=== PATIENT | male | born 1985 | race Caucasian/White ===

== ENCOUNTER 2022-03-12 05:25 | Inpatient (IN) | payer OTHER ==
[~2022-03-12] VITALS: Ht 180.3 cm; Wt 86.4 kg
[2022-03-12 07:13] LABS: BASOPHILS ABSOLUTE AUTO 0.04 K/mm3 (0.00-0.23); BASOPHILS PERCENT AUTO 0 % (0-2); EOSINOPHILS ABSOLUTE AUTO 0.01 K/mm3 (0.00-0.68); EOSINOPHILS PERCENT AUTO 0 % (0-6); Hematocrit 32.8 % (37.0-53.0); Hemoglobin 11.5 g/dL (13.5-17.5); IMMATURE GRAN PERCENT AUTO 2 % (0-1); LYMPHOCYTES ABSOLUTE AUTO 0.66 K/mm3 (0.84-5.20); LYMPHOCYTES PERCENT AUTO 5 % (21-46); MONOCYTES ABSOLUTE AUTO 1.12 K/mm3 (0.16-1.47); MONOCYTES PERCENT AUTO 9 % (4-13); Mean Corpuscular HGB 29.5 pg (26.0-34.0); Mean Corpuscular HGB Conc 35.1 g/dL (31.5-36.5); Mean Corpuscular Volume 84 fL (80-100); Mean Platelet Volume 9.9 fL (9.1-12.4); NEUTROPHILS PERCENT AUTO 84 % (41-73); Platelet Count 111 K/mm3 (150-400); RDW Coefficient Variation 13.9 % (11.7-14.2); RDW Standard Deviation 43.1 fL (35.1-46.3); White Blood Cell Count 12.83 K/mm3 (4.00-11.30)
[2022-03-12 07:50] LABS: Albumin, Blood 2.5 g/dL (3.4-5.0); Albumin/Globulin Ratio 0.7 (0.8-1.8); Bilirubin, Total 1.1 mg/dL (0.1-1.0); Bun/Creatinine Ratio 27.4 (12.0-20.0); Calcium, Blood 8.3 mg/dL (8.5-10.1); Creatinine, Blood 0.8 mg/dL (0.60-1.20); Globulin, Blood 3.6 g/dL (2.2-4.0); Potassium, Blood 3.6 mmol/L (3.5-5.5); Total Protein, Blood 6.1 g/dL (6.4-8.2)
[2022-03-12 08:04] LABS: Influenza A, PCR NEGATIVE (NEGATIVE); Influenza B, PCR NEGATIVE (NEGATIVE); Resp Syncytial Virus, PCR NEGATIVE (NEGATIVE); SARS-Cov-2 (COVID-19) PCR, MMC NEGATIVE (NEGATIVE)
[2022-03-12 08:06] LABS: Creatine Kinase MB Index 0.2 (0.0-4.0)
--- NOTE | 2022-03-12 17:28 | NUR ---
Admission Note Received report from ER, pt transfered with 4 person assist with slider sheet. Pt waking to verbal stimuli, quickly falling back to sleep when no longer stimulated. Oriented to person, place, Month/year; unclear of event. Pt reports pain "everywhere", states increased pain to rle which it was shattered over a year ago per pt; medicated X1 with toradol with positive results. Pt denies chest pain/pressure, sob, nausea, dizziness and numb/tingling. Tele sinus tach, bp stable. Spo2 >90% on 2l o2 via nc, breathing tachypnic. Abd mild distention, soft, nontender. Pt to chest ct completed. Tmax 100.8. Other vss. No other acute changes noted. Will continue to monitor unitl report given to onfreya rn.
[2022-03-12 17:57] LABS: Source, Urine Clean Catch
[2022-03-12 18:03] LABS: Appearance, Urine Clear (Clear); Blood, Urine 2+ (Neg); Glucose Qualitative, Urine Neg (Neg); Ketones, Urine Neg (Neg); Leukocyte Esterase, Urine 1+ (Neg); Nitrite, Urine Neg (Neg); Protein, Urine 2+ (Neg); Urobilinogen, Urine 3+ (Normal); pH, Urine 6.5 (5.0-8.0)
[2022-03-12 18:12] LABS: Bilirubin, Urine 1+ (Neg); Color, Urine Amber (P-Yellow)
[2022-03-12 18:14] LABS: Bacteria Mod /hpf; Squamous Epithelial Cells Rare /hpf (Few)
[2022-03-12 18:16] LABS: U Amphetamine Screen DETECTED; U Barbituate Screen Not Detected; U Benzodiazapine Screen Not Detected; U Buprenorphine Screen DETECTED; U Cannabinoids Screen Not Detected; U Cocaine Screen Not Detected; U Methadone Screen Not Detected; U Methamphetamine Screen DETECTED; U Opiates Screen Not Detected; U Oxycodone Screen Not Detected; U Phencyclidine Screen Not Detected; U Propoxyphene Screen Not Detected
[2022-03-13 04:25] LABS: Hematocrit 32.6 % (37.0-53.0); Hemoglobin 11.3 g/dL (13.5-17.5); Mean Corpuscular HGB 29.4 pg (26.0-34.0); Mean Corpuscular HGB Conc 34.7 g/dL (31.5-36.5); Mean Corpuscular Volume 85 fL (80-100); Mean Platelet Volume 10.5 fL (9.1-12.4); Platelet Count 84 K/mm3 (150-400); RDW Coefficient Variation 14.1 % (11.7-14.2); RDW Standard Deviation 43.9 fL (35.1-46.3); Red Blood Cell Count 3.84 M/mm3 (4.30-5.90); White Blood Cell Count 10.45 K/mm3 (4.00-11.30)
[2022-03-13 05:02] LABS: Albumin, Blood 1.8 g/dL (3.4-5.0); Albumin/Globulin Ratio 0.6 (0.8-1.8); Calcium, Blood 7.6 mg/dL (8.5-10.1); Creatinine, Blood 0.59 mg/dL (0.60-1.20); Globulin, Blood 3.1 g/dL (2.2-4.0); Potassium, Blood 3.3 mmol/L (3.5-5.5); Total Protein, Blood 4.9 g/dL (6.4-8.2)
--- NOTE | 2022-03-13 05:32 | NUR ---
SHIFT SUMMARY PT ALERT AND ORIENTED X4. SLEEPY MOST OF NIGHT BUT EASILY AROUSABLE. AFEBRILE. HR SR/ST 90-110'S. ON 2L NC SATS OVER 94%. BP SYSTOLIC 90-100'S, MAP>60. C/O PAIN THROUGHOUT NIGHT. STATES PAIN IS CONSTANTLY 9-10/10 WITH MINIMAL RELIEF FROM TORADAL. PT RESTARTED ON HOME BUPRENORPHINE, 8MG TID. PT IN BED ALL OF NIGHT, NO ATTEMPTS TO GET UP. VOIDS INDEPENDENTLY WITH BEDSIDE URINAL. ABLE TO TOLERATE PO INTAKE. LR RUNNING AT 150/HR. IN BED SLEEPING WITH CALL ALARM AT SIDE, WILL CONTINUE TO MONITOR UNTIL REPORT GIVEN TO ONCOMING RN
[2022-03-13 05:40] LABS: BAND PERCENT MAN 9 % (0-8); BASOPHILS PERCENT MAN 0 % (0-2); EOSINOPHILS PERCENT MAN 0 % (0-6); LYMPHOCYTES ABSOLUTE MAN 0.62 K/mm3 (0.84-5.20); LYMPHOCYTES PERCENT MAN 6 % (21-46); MONOCYTES ABSOLUTE MAN 0.62 K/mm3 (0.16-1.47); MONOCYTES PERCENT MAN 6 % (4-13); NEUTROPHILS ABSOLUTE MAN 9.19 K/mm3 (1.96-9.15); SEG NEUTROPHILS PERCENT MAN 79 % (41-73); TOTAL CELLS COUNTED 100
[2022-03-13 06:02] LABS: Magnesium, Blood 2.4 mg/dL (1.6-2.4)
--- NOTE | 2022-03-13 16:52 | NUR ---
Shift Summary Pt alert this am, waking easily to verbal stimuli, oriented x4. Pt states "someone is zaping me, I have a vitaly in my leg and someone is zapping me." Pt appears to be talking to someone when no one else is present in room. At shift change hypotensive this am, map less than 60, bolus in progess, after bolus map >65 for majoirty of shift, this afternoon map 57-58, notified MD, new orders for an additional bolus, map >60, will continue to monitor. Tmax 100.7, pt reporting feeling cold, tremulous noted, heart rate elevated; heart rate trending down with temp trending down. Pt reporting pain, medicated per x1 with toradol with positive results. Discussed buprenorphine with MD VIVIANA to place new orders. Tele sinus 80-90, while febrile 100-120's. Spo2 >90% on 2l o2 via nc, breathing even and unlabored. No other acute changes noted. Will continue to monitor until report given to oncoming rn.
--- NOTE | 2022-03-13 19:05 | NUR ---
Assumed care. Report received from aj MARCELO. Pt restin in bed, on 02 via NC at 2 L/min. PG in GRACY, WNL, LR infusing at 150 ml/hr. Pt sleeping, no acute needs ATT. Will continue to monitor.
[2022-03-13 21:59] LABS: Vancomycin, Trough 9.2 ug/mL (5.0-10.0)
[2022-03-14 05:29] LABS: BASOPHILS ABSOLUTE AUTO 0.04 K/mm3 (0.00-0.23); BASOPHILS PERCENT AUTO 0 % (0-2); Hematocrit 32.2 % (37.0-53.0); Hemoglobin 10.8 g/dL (13.5-17.5); LYMPHOCYTES ABSOLUTE AUTO 1.51 K/mm3 (0.84-5.20); LYMPHOCYTES PERCENT AUTO 15 % (21-46); MONOCYTES ABSOLUTE AUTO 1.13 K/mm3 (0.16-1.47); MONOCYTES PERCENT AUTO 11 % (4-13); Mean Corpuscular HGB 29.2 pg (26.0-34.0); Mean Corpuscular HGB Conc 33.5 g/dL (31.5-36.5); Mean Corpuscular Volume 87 fL (80-100); RDW Coefficient Variation 14.6 % (11.7-14.2); White Blood Cell Count 10.11 K/mm3 (4.00-11.30)
[2022-03-14 05:40] LABS: EOSINOPHILS ABSOLUTE AUTO 0.24 K/mm3 (0.00-0.68); EOSINOPHILS PERCENT AUTO 2 % (0-6); IMMATURE GRAN ABSOLUTE AUTO 0.44 K/mm3 (0.00-0.10); IMMATURE GRAN PERCENT AUTO 4 % (0-1); NEUTROPHILS ABSOLUTE AUTO 6.75 K/mm3 (1.96-9.15); NEUTROPHILS PERCENT AUTO 67 % (41-73); Platelet Count 113 K/mm3 (150-400)
[2022-03-14 06:11] LABS: Albumin, Blood 1.5 g/dL (3.4-5.0); Albumin/Globulin Ratio 0.5 (0.8-1.8); Bilirubin, Total 0.5 mg/dL (0.1-1.0); Bun/Creatinine Ratio 31.8 (12.0-20.0); Calcium, Blood 7.5 mg/dL (8.5-10.1); Creatinine, Blood 0.63 mg/dL (0.60-1.20); Globulin, Blood 2.9 g/dL (2.2-4.0); Potassium, Blood 3.7 mmol/L (3.5-5.5); Total Protein, Blood 4.4 g/dL (6.4-8.2)
--- NOTE | 2022-03-14 06:13 | NUR ---
Shift summary. Pt rested in bed throughout shift. No acute events overnight. Pt sleepy but arousable, VS stable. Pt expressed desire to be discharged into an inpatient rehabilitation program, stated that he needed help finding a facility to get into. Pt seems very concerned about the weather getting colder as he is currently homeless. See shift assessment for further details. Will continue to monitor and report off to dayshift RN.
--- NOTE | 2022-03-14 07:36 | NUR ---
NURSING PCU DAYSHIFT: Assumed care of pt at approx 0700. Sleeping when room entered, arouses to verbal stimuli, oriented and cooperative w/care. General weakness requiring assistance w/ambulation and transfers, able to reposition independently in bed. C/O 5/10 "lung" pain worsening w/deep inspiration. Temp 99.3 at initial assessment. Skin is flushed w/several scabs/scars of various healing stages r/t IV drug use, scattered bruising, no significant breakdown noted. Tele in place, NSR w/HR 90's, SBP 136 prior to a.m. meds, non-pitting edema noted to hands/feet and t/o ext's, no c/o CP/pressure. L/S w/dim bases, respirations rapid and shallow, mild snoring while asleep, O2 sat mid to upper 90's on RA, occ moist/INSPECTOR BULLET SLUGS cough, denies dyspnea. Abd NT, BT+, voiding w/o difficulty per rpt. PG to GRACY, LR infusing at 150mls/hr w/abx as scheduled. Chest CT and ECHO results reviewed. Pt denies any current needs or questions regarding plan of care. Bed alarm set for safety. Awaiting rounding from PMD, call light in reach, cont to monitor for any changes.
[2022-03-14 08:09] LABS: HIV AB/P24 AG SCREEN Non Reactive (Non Reactive)
--- NOTE | 2022-03-14 15:09 | NUR ---
NURSING PCU DAYSHIFT SUMMARY: No significant changes noted t/o the shift. BP remained stable, HR 90's to low 100's. Temp 100.8 this afternoon, extra blankets removed. Slight desaturation to mid 80's while asleep, placed on 2L NC. Pt has slept t/o majority of the shift w/minimal requests/needs. Good appetite and PO intake w/meals, snacks, and fluids. Seen by PMD, new d/o received. Changed to medical status w/o tele, awaiting bed assignment. LR continues to infuse at 150/hr w/abx as scheduled. No s/s of acute distress at this time. Transfer of care to peer RN, bedside report completed.
--- NOTE | 2022-03-14 15:15 | NUR ---
ASSUMED CARE OF THIS PT. HE IS CURRENTLY SLEEPING. BED IS IN THE LOW POSITION AND CALL LIGHT IS WITIN REACH.
--- NOTE | 2022-03-14 18:17 | NUR ---
RECEIVED REPORT FROM ALEXIS BARRIGA RN REGARDING PATIENT TRANSFERRED FROM PCU RM 6 TO MEDICAL UNIT RM 328. PATIENT ARRIVED TO THE ROOM AROUND 1815 VIA WHEELCHAIR. PATIENT TRANSFERRED TO BED WITH SBA. USES O2 2L VIA NC WITH SPO2 ABOVE 92%. INFUSING LR AT 150 MLS/HR. ORIENT TO ROOM AND CALL LIGHTS. BED IN LOWEST POSITION AND LOCKED. URINAL AND CALL LIGHT WITHIN PATIENT REACH.
--- NOTE | 2022-03-14 20:59 | NUR ---
NOTE PT HAVING NON-PITTING EDEMA TO BILAT FEET, ARMS, AND HANDS. PT STS WORSE THAN WHEN HE CAME IN BUT NOT WORSE THAN THIS AM. CALLED DR. ROLLINS AND GOT ORDER TO STOP HIS FLUIDS. FLUIDS HAVE BEEN STOPPED AT THIS TIME.
--- NOTE | 2022-03-15 04:38 | NUR ---
SHIFT SUMMARY PT COMPLAINED OF PAIN EARLY IN SHIFT AND WAS MEDICATED PER EMAR. PT HAS BEEN ASLEEP EVER SINCE. PT ARMS, HANDS, AND FEET CONTINUE TO BE SWOLLEN. FLUIDS ARE STILL TURNED OFF AT THIS TIME PER DR ORDER LAST NIGHT. PT HAS NO COMPLAINTS AT THIS TIME AND CALL LIGHT IS WITHIN HIS REACH.
[2022-03-15 07:51] LABS: Bun/Creatinine Ratio 24.6 (12.0-20.0); Calcium, Blood 7.7 mg/dL (8.5-10.1); Creatinine, Blood 0.53 mg/dL (0.60-1.20); Potassium, Blood 4.1 mmol/L (3.5-5.5)
--- NOTE | 2022-03-15 14:00 | NUR ---
PT TO CYNTHIA @ THIS TIME VIA WC.
--- NOTE | 2022-03-15 15:14 | NUR ---
PT TOLERATES CYNTHIA PROCEDURE WITH DR MARQUEZ AND ANESTHESIA WELL. VSS. NADN. WILL CONTINUE TO MONITOR. PT WILL CONTINUE SOFT DIET THE REMAINDER OF THE DAY.
--- NOTE | 2022-03-15 16:04 | NUR ---
PT RETURNS FROM CYNTHIA ABLE TO SELF SLIDE TRANSFER FROM BED TO BED. HTN NOTED
--- NOTE | 2022-03-15 18:11 | NUR ---
SHIFT SUMMARY PT A&OX4 AND IN PLEASENT MOOD. CYNTHIA COMPLETE THIS SHIFT. TOLERATING PO INTAKE WELL. VSS. RESTING IN BED T/O SHIFT. CALL LIGHT W/IN REACH. PLAN TO CONTINUE IV ABX.
--- NOTE | 2022-03-16 05:35 | NUR ---
SHIFT SUMMARY PATIENT DENIES PAIN, NAUSEA, AND SHORTNESS OF BREATH. PATIENT IS A 1P FOR TRANSFERS. PATIENT HAS EDEMA THROUGHOUT EXTREMITIES. PATIENT HAS SOFT SNACK OVERNIGHT PER DR ORDER. PATIENT TOLERATED WELL. PATIENT SLEPT MOST OF SHIFT. PATIENT IS VERY PLEASANT AND COOPERATIVE WITH CARE. BLOOD CULTURES DRAWN THIS AM.
[2022-03-16 06:27] LABS: Hematocrit 32.9 % (37.0-53.0); Hemoglobin 10.9 g/dL (13.5-17.5); Mean Corpuscular HGB 28.9 pg (26.0-34.0); Mean Corpuscular HGB Conc 33.1 g/dL (31.5-36.5); Mean Corpuscular Volume 87 fL (80-100); Mean Platelet Volume 9.6 fL (9.1-12.4); Platelet Count 289 K/mm3 (150-400); RDW Coefficient Variation 14.3 % (11.7-14.2); Red Blood Cell Count 3.77 M/mm3 (4.30-5.90); White Blood Cell Count 17.51 K/mm3 (4.00-11.30)
[2022-03-16 06:49] LABS: Albumin, Blood 1.5 g/dL (3.4-5.0); Albumin/Globulin Ratio 0.4 (0.8-1.8); Bilirubin, Total 0.7 mg/dL (0.1-1.0); Bun/Creatinine Ratio 19.9 (12.0-20.0); Calcium, Blood 7.7 mg/dL (8.5-10.1); Creatinine, Blood 0.55 mg/dL (0.60-1.20); Globulin, Blood 3.7 g/dL (2.2-4.0); Potassium, Blood 4.5 mmol/L (3.5-5.5); Total Protein, Blood 5.2 g/dL (6.4-8.2)
[2022-03-16 08:19] LABS: BAND PERCENT MAN 4 % (0-8); BASOPHILS PERCENT MAN 0 % (0-2); EOSINOPHILS ABSOLUTE MAN 0.35 K/mm3 (0.00-0.68); EOSINOPHILS PERCENT MAN 2 % (0-6); LYMPHOCYTES % ATYPICAL MANUAL 1 % (0-0); LYMPHOCYTES ABSOLUTE MAN 1.22 K/mm3 (0.84-5.20); LYMPHOCYTES PERCENT MAN 6 % (21-46); METAMYELOCYTE ABSOLUTE MAN 0.35 K/mm3 (0.00-0.00); METAMYELOCYTE PERCENT MAN 2 % (0-0); MONOCYTES ABSOLUTE MAN 1.57 K/mm3 (0.16-1.47); MONOCYTES PERCENT MAN 9 % (4-13); MYELOCYTE ABSOLUTE MAN 0.35 K/mm3 (0.00-0.00); MYELOCYTE PERCENT MAN 2 % (0-0); NEUTROPHILS ABSOLUTE MAN 13.65 K/mm3 (1.96-9.15); SEG NEUTROPHILS PERCENT MAN 74 % (41-73); TOTAL CELLS COUNTED 100
[2022-03-16 11:10] LABS: HBSAG SCREEN Negative (Negative); HCV AB >11.0 (0.0-0.9); HEP A AB, IGM Negative (Negative); HEP B CORE AB, IGM Negative (Negative); HEPATITIS C QUANTITATION 1260 IU/mL (.)
--- NOTE | 2022-03-16 17:26 | NUR ---
SHIFT SUMMARY: NO ACUTE EVENTS. STAYED IN BED ENTIRE SHIFT, SLEPT ALL DAY, AROUSEABLE TO SPEECH AND IS ORIENTED WHEN AWAKE. C/O GENERALIZED PAIN "ALL OVER MY BODY;" MEDICATED PER EMAR WITH ADEQUATE RELIEF. USING URINAL INDEPENDENTLY. ONE TIME DOSE OF LASIX GIVEN WITH > 1000 ML OUT. APPETITE GOOD.
--- NOTE | 2022-03-17 04:34 | NUR ---
SHIFT SUMMARY PT HAD FEVER OF 101F, ADMINISTERED PRN TYLENOL AT BEGINNING OF SHIFT. 0400 PT HAD 101F TEMP AGAIN AND C/O 10/10 RIB PAIN AFTER COUGHING , ADMINISTERED PRN TORADOL AND OPENED ROOM. TEMP DOWN TO 99.5F. NOTED SWELLING DOWN FROM PREVIOUS NIGHT. PT USING URINAL WITH GOOD OUTPUT. PT ABLE TO USE CALL LIGHT, WILL CONTINUE TO MONITOR.
[2022-03-17 07:42] LABS: Bun/Creatinine Ratio 25.3 (12.0-20.0); Calcium, Blood 7.7 mg/dL (8.5-10.1); Creatinine, Blood 0.55 mg/dL (0.60-1.20); Potassium, Blood 4.7 mmol/L (3.5-5.5)
[2022-03-17 11:26] LABS: Hematocrit 30.9 % (37.0-53.0); Hemoglobin 10.7 g/dL (13.5-17.5); Mean Corpuscular HGB 29.9 pg (26.0-34.0); Mean Corpuscular HGB Conc 34.6 g/dL (31.5-36.5); Mean Corpuscular Volume 86 fL (80-100); Platelet Count 390 K/mm3 (150-400); RDW Coefficient Variation 14.2 % (11.7-14.2); RDW Standard Deviation 45.2 fL (35.1-46.3); Red Blood Cell Count 3.58 M/mm3 (4.30-5.90)
[2022-03-17 12:21] LABS: BAND PERCENT MAN 3 % (0-8); BASOPHILS PERCENT MAN 0 % (0-2); EOSINOPHILS PERCENT MAN 0 % (0-6); LYMPHOCYTES ABSOLUTE MAN 1.76 K/mm3 (0.84-5.20); LYMPHOCYTES PERCENT MAN 11 % (21-46); METAMYELOCYTE ABSOLUTE MAN 0.16 K/mm3 (0.00-0.00); METAMYELOCYTE PERCENT MAN 1 % (0-0); MONOCYTES ABSOLUTE MAN 0.96 K/mm3 (0.16-1.47); MONOCYTES PERCENT MAN 6 % (4-13); MYELOCYTE ABSOLUTE MAN 0.48 K/mm3 (0.00-0.00); MYELOCYTE PERCENT MAN 3 % (0-0); NEUTROPHILS ABSOLUTE MAN 12.64 K/mm3 (1.96-9.15); SEG NEUTROPHILS PERCENT MAN 76 % (41-73); TOTAL CELLS COUNTED 100
--- NOTE | 2022-03-17 19:37 | NUR ---
SHIFT SUMMARY: LOW GRADE TEMP 99.0 TODAY. C/O GENERALIZED PAIN R/T EDEMA; MEDICATED PER EMAR. POWERGLIDE IV CAPS CHANGED AND BLOOD RETURN NOTED. USING URINAL INDEPENDENTLY. GOOD APPETITE, ASKING FOR SNACKS BETWEEN MEALS. STARTED ON BOWEL MEDS, NO RESULT YET.
--- NOTE | 2022-03-18 04:26 | NUR ---
Shift Summary Pt febrile throughout shift from 99 to 101.6. Tylenol given, ice packs applied, encouraged cool beverages, fan running. Pt continues abx. Good urine output. Regular diet with good appetite. Pt turns self in bed. No other events overnight. Educated parking station attendant light. Will continue to monitor.
[2022-03-18 06:08] LABS: Hematocrit 33.1 % (37.0-53.0); Mean Corpuscular HGB Conc 33.2 g/dL (31.5-36.5); Mean Corpuscular Volume 87 fL (80-100); Mean Platelet Volume 8.6 fL (9.1-12.4); Platelet Count 426 K/mm3 (150-400); RDW Standard Deviation 44.4 fL (35.1-46.3); Red Blood Cell Count 3.79 M/mm3 (4.30-5.90)
[2022-03-18 06:28] LABS: Albumin, Blood 1.5 g/dL (3.4-5.0); Albumin/Globulin Ratio 0.4 (0.8-1.8); Bilirubin, Total 0.5 mg/dL (0.1-1.0); Bun/Creatinine Ratio 23.3 (12.0-20.0); Calcium, Blood 7.6 mg/dL (8.5-10.1); Creatinine, Blood 0.47 mg/dL (0.60-1.20); Globulin, Blood 4.1 g/dL (2.2-4.0); Potassium, Blood 4.5 mmol/L (3.5-5.5); Total Protein, Blood 5.6 g/dL (6.4-8.2)
[2022-03-18 06:39] LABS: BAND PERCENT MAN 6 % (0-8); BASOPHILS PERCENT MAN 0 % (0-2); EOSINOPHILS ABSOLUTE MAN 0.17 K/mm3 (0.00-0.68); EOSINOPHILS PERCENT MAN 1 % (0-6); LYMPHOCYTES ABSOLUTE MAN 2.42 K/mm3 (0.84-5.20); LYMPHOCYTES PERCENT MAN 14 % (21-46); METAMYELOCYTE ABSOLUTE MAN 0.34 K/mm3 (0.00-0.00); METAMYELOCYTE PERCENT MAN 2 % (0-0); MONOCYTES ABSOLUTE MAN 1.21 K/mm3 (0.16-1.47); MONOCYTES PERCENT MAN 7 % (4-13); MYELOCYTE ABSOLUTE MAN 0.51 K/mm3 (0.00-0.00); MYELOCYTE PERCENT MAN 3 % (0-0); NEUTROPHILS ABSOLUTE MAN 12.62 K/mm3 (1.96-9.15); SEG NEUTROPHILS PERCENT MAN 67 % (41-73); TOTAL CELLS COUNTED 100
--- NOTE | 2022-03-18 19:23 | NUR ---
SHIFT SUMMARY: PT A&O X4, PLEASANT AND COOPERATIVE. PT HAD GENERALIZED BODY PAIN AND HEADACHES. PT HAD ELEVATED TEMPERTURE MID SHIFT 101.4, PT GIVEN TYLENOL. PT REASSESED AND DECREASED IN TEMPERTURE. PT REQUESTED FROM DR. ZAVALA TO ORDER METHADONE FOR DRUG WITHDRAWL, PT CURRENTLY ON SUBOXONE 6MG TID[address] DR. ZAVALA INCREASED FREQUENCY OF SUBOXONE. PT HAD AN ELEVATED TEMPERTURE AT END OF SHIFT 100.4, PT GIVEN TYLENOL FOR PAIN AND FEVER. PT WAS ICED THROUGHOUT SHIFT FOR TEMPERTURE ELEVATION. PT CONTIUNES TO URINATED OUT FLUIDS THROUGHOUT SHIFT. PT ABLE TO SETUP ON THE SIDE OF BED AND DANGLE LEGS FOR ALL MEALS. PT IN BED WITH CALL LIGHT WITHIN REACH.
[2022-03-19 05:16] LABS: Hematocrit 33.4 % (37.0-53.0); Hemoglobin 11.3 g/dL (13.5-17.5); Mean Corpuscular HGB 29.4 pg (26.0-34.0); Mean Corpuscular HGB Conc 33.8 g/dL (31.5-36.5); Mean Corpuscular Volume 87 fL (80-100); Mean Platelet Volume 8.5 fL (9.1-12.4); Platelet Count 468 K/mm3 (150-400); RDW Standard Deviation 44.8 fL (35.1-46.3); Red Blood Cell Count 3.84 M/mm3 (4.30-5.90); White Blood Cell Count 18.48 K/mm3 (4.00-11.30)
[2022-03-19 05:36] LABS: Albumin, Blood 1.6 g/dL (3.4-5.0); Albumin/Globulin Ratio 0.3 (0.8-1.8); Bilirubin, Total 0.7 mg/dL (0.1-1.0); Bun/Creatinine Ratio 23.1 (12.0-20.0); Calcium, Blood 7.9 mg/dL (8.5-10.1); Creatinine, Blood 0.61 mg/dL (0.60-1.20); Globulin, Blood 4.8 g/dL (2.2-4.0); Potassium, Blood 4.3 mmol/L (3.5-5.5); Total Protein, Blood 6.4 g/dL (6.4-8.2)
--- NOTE | 2022-03-19 06:05 | NUR ---
SHIFT SUMMARY PT SLEPT THROUGH MUCH OF THE NIGHT. COMPLAINING OF PAIN THROUGHOUT BODY. MOST SEVERELY IN LUNGS WITH COUGHING OR DEEP BREATHING. NEW ORDER FOR TORADOL OBTAINED. MIDNIGHT DOSE OF BUPRENORPHINE HELD DUE TO PT'S BEING VERY LETHARGIC AT THE TIME. FEBRILE THIS EVENING OFF AND ON. LAST 98.3 THIS AM. PT HAS NOT HAD A BOWEL MOVEMENT SINCE 03/11/22. PT CONFIRMED. MIRALAX GIVEN. NO RESULTS SO FAR. VITAL SIGNS STABLE.
[2022-03-19 06:39] LABS: BAND PERCENT MAN 3 % (0-8); BASOPHILS PERCENT MAN 0 % (0-2); EOSINOPHILS ABSOLUTE MAN 0.36 K/mm3 (0.00-0.68); EOSINOPHILS PERCENT MAN 2 % (0-6); LYMPHOCYTES ABSOLUTE MAN 1.84 K/mm3 (0.84-5.20); LYMPHOCYTES PERCENT MAN 10 % (21-46); METAMYELOCYTE ABSOLUTE MAN 0.36 K/mm3 (0.00-0.00); METAMYELOCYTE PERCENT MAN 2 % (0-0); MONOCYTES ABSOLUTE MAN 2.03 K/mm3 (0.16-1.47); MONOCYTES PERCENT MAN 11 % (4-13); MYELOCYTE ABSOLUTE MAN 0.18 K/mm3 (0.00-0.00); MYELOCYTE PERCENT MAN 1 % (0-0); NEUTROPHILS ABSOLUTE MAN 13.67 K/mm3 (1.96-9.15); SEG NEUTROPHILS PERCENT MAN 71 % (41-73); TOTAL CELLS COUNTED 100
--- NOTE | 2022-03-19 16:54 | NUR ---
PT AOX4 AND COOPERATIVE OF CARE. PT STARTED SHIFT WITH TEMP OF 100.00. PT TREATED FOR BODY PAIN WITH TYLENOL AND NOW IS AFEBRILE AT END OF SHIFT.PT RESTING IN BED AT THIS TIME. CALL LIGHT WITHIN REACH WILL CONTINUE TO MONITOR.
--- NOTE | 2022-03-20 03:41 | NUR ---
A/OX4; CALM AND COOPERATIVE. C/O -03/05 PAIN "EVERYWHERE" - ALERNATING BETWEEN PRN TYLENOL AND PRN TORADOL; SOMEWHAT HELPFUL PER PATIENT. ICE PACKS ALSO SOMEWHAT HELPFUL. LUNGS CTA WITH PRODUCTIVE OCCASIONAL COUGH. FEBRILE AT SHIFT START (RESOLVED WITH TYLENOL). ABX PER ORDERS. FREQUENT SNACKS GIVEN. CALL LIGHT IN REACH; ENCOURAGED TO MAKE NEEDS KNOWN.
[2022-03-20 05:31] LABS: Hematocrit 31.7 % (37.0-53.0); Hemoglobin 10.3 g/dL (13.5-17.5); Mean Corpuscular HGB Conc 32.5 g/dL (31.5-36.5); Mean Corpuscular Volume 89 fL (80-100); Platelet Count 527 K/mm3 (150-400); RDW Coefficient Variation 13.7 % (11.7-14.2); RDW Standard Deviation 45.1 fL (35.1-46.3); Red Blood Cell Count 3.55 M/mm3 (4.30-5.90); White Blood Cell Count 15.47 K/mm3 (4.00-11.30)
[2022-03-20 05:34] LABS: Bun/Creatinine Ratio 28.2 (12.0-20.0); Calcium, Blood 7.9 mg/dL (8.5-10.1); Creatinine, Blood 0.6 mg/dL (0.60-1.20); Potassium, Blood 4.3 mmol/L (3.5-5.5)
[2022-03-20 07:00] LABS: BAND PERCENT MAN 1 % (0-8); BASOPHILS PERCENT MAN 0 % (0-2); EOSINOPHILS ABSOLUTE MAN 0.46 K/mm3 (0.00-0.68); EOSINOPHILS PERCENT MAN 3 % (0-6); LYMPHOCYTES ABSOLUTE MAN 1.85 K/mm3 (0.84-5.20); LYMPHOCYTES PERCENT MAN 12 % (21-46); MONOCYTES ABSOLUTE MAN 0.46 K/mm3 (0.16-1.47); MONOCYTES PERCENT MAN 3 % (4-13); NEUTROPHILS ABSOLUTE MAN 12.68 K/mm3 (1.96-9.15); SEG NEUTROPHILS PERCENT MAN 81 % (41-73); TOTAL CELLS COUNTED 100
--- NOTE | 2022-03-20 16:37 | NUR ---
NO ACUTE CHANGES. PT AOX4 AND CAN MAKE NEEDS KNOWN. PT CONTINUES TO REPORT OVERALL BODY PAIN AND IS TREATED PER EMAR. PT ALSO TREATED FOR MILD FEVER 101.1 START OF SHIFT PER EMAR. NO DISTRESS NOTED AT THIS TIME WILL CONTINUE TO MONITOR.
--- NOTE | 2022-03-21 06:53 | NUR ---
A/OX4; CALM AND COOPERATIVE. C/O GENERALIZED PAIN AND FEBRILE; FEVER RESOLVED WITH PRN TYLENOL AND FREQUENT ICE CREAM. IND TO TOILET. CONSTIPATION RESOLVED THIS SHIFT. URINE CONCENTRATED; PO FLUIDS PROVIDED/ENCOURAGED. IV ABX PER ORDERS. [facility] CONTACT NUMBERS PROVIDED PER PATIENT REQUEST. CALL LIGHT IN REACH; ENCOURAGED TO MAKE NEEDS KNOWN.
--- NOTE | 2022-03-21 16:47 | NUR ---
SHIFT SUMMARY- PT VSS. PT ASLEEP MOST OF SHIFT. PT PLEASANT COMPLIANT WITH CARE. ON RA. NO TELE. RUNNING KVO, ORDERED. APPETITE GOOD. POWER GLIDE DRESSING CHANGED AND PATENT. A@O X4. VOIDING WELL IN URINAL SEE EMAR. NO BM ON SHIFT. CALL LIGHT IN REACH, SIDE RAILS UP FOR SAFETY.
--- NOTE | 2022-03-22 04:16 | NUR ---
SHIFT SUMMARY Pt A/Ox4 and cooperative and pleasant with staff. Overnight pt had a fever of 101.6-PRN tylenol given, rec-check temperature was 98.8. Pt did have c/o pain overnight that was "all over" PRN Toradol 30mg given x1. Pt did state he was SOB at times, oxygen remained >92% on RA. IV Rocephin given per JUL.
--- NOTE | 2022-03-22 17:55 | NUR ---
SHIFT SUMMARY PT A/O X4; PLEASANT AND COOPERATIVE WITH CARE. NO COMPLAINTS THIS SHIFT. PT CONTINUES TO RECEIVE IV ABX. IND IN THE ROOM .VSS.
--- NOTE | 2022-03-23 04:19 | NUR ---
SHIFT SUMMARY: This shift pt had poor pain control. Stated his Ribs hurt from coughing and generalized pains. He mentioned wanting to switch back to methadone. Supervisor [employer] assured him this would be passed along to day shift. In the meantime, IV Toradol 30mg and Tylenol utilized. Pt denied SOB this shift, and oxygen remained >92% on RA. IV Rocephin given per JUL.
--- NOTE | 2022-03-23 18:22 | NUR ---
SHIFT SUMMARY PT A/O X4; PLEASANT AND COOPERATIVE WITH CARE. PT C/O INCREASED PAIN IN HIS RIBS/LOWER BACK. TREATED PER EMR. PT INQUIRES ABOUT SWITCHING TO METHADONE DUE TO IT BETTER CONTROLLING HIS PAIN IN THE PAST. PHYSICIANS NOTIFIED OF THIS REQUEST. PT ALSO EXPERIENCING FEVERS THIS SHIFT. PT TO CONTINUE TO RECEIVE IV ABX AND PLAN TO POSSIBLY DC TO SWING BED IF ONE IS ABLE TO BE FOUND.
--- NOTE | 2022-03-24 04:51 | NUR ---
NIGHTSHIFT SUMMARY Assumed patient care at 0300, patient resting comfortably in bed, arouses easily to voice. Administred IV ABX, patient turned in bed, and started crying out, and yelling, he stated "oh oh oh I am going to ", he apolgized for yelling and said the pain is uncontrolled. Requested that nurse call MD to ask for pain meds he stated that the Suboxone was not working. Administred tylenol for pain, PRN not effective. VSS. Will continue to monitor.
[2022-03-24 05:06] LABS: BASOPHILS ABSOLUTE AUTO 0.17 K/mm3 (0.00-0.23); BASOPHILS PERCENT AUTO 1 % (0-2); EOSINOPHILS ABSOLUTE AUTO 0.25 K/mm3 (0.00-0.68); EOSINOPHILS PERCENT AUTO 2 % (0-6); Hemoglobin 9.6 g/dL (13.5-17.5); IMMATURE GRAN ABSOLUTE AUTO 0.22 K/mm3 (0.00-0.10); IMMATURE GRAN PERCENT AUTO 2 % (0-1); LYMPHOCYTES ABSOLUTE AUTO 2.02 K/mm3 (0.84-5.20); LYMPHOCYTES PERCENT AUTO 16 % (21-46); MONOCYTES ABSOLUTE AUTO 1.03 K/mm3 (0.16-1.47); MONOCYTES PERCENT AUTO 8 % (4-13); Mean Corpuscular HGB 29.1 pg (26.0-34.0); Mean Corpuscular HGB Conc 33.1 g/dL (31.5-36.5); Mean Corpuscular Volume 88 fL (80-100); Mean Platelet Volume 8.9 fL (9.1-12.4); NEUTROPHILS ABSOLUTE AUTO 9.02 K/mm3 (1.96-9.15); NEUTROPHILS PERCENT AUTO 71 % (41-73); Platelet Count 627 K/mm3 (150-400); RDW Coefficient Variation 13.3 % (11.7-14.2); RDW Standard Deviation 42.9 fL (35.1-46.3); White Blood Cell Count 12.71 K/mm3 (4.00-11.30)
[2022-03-24 05:34] LABS: Bun/Creatinine Ratio 37.5 (12.0-20.0); Calcium, Blood 8.1 mg/dL (8.5-10.1); Creatinine, Blood 0.61 mg/dL (0.60-1.20); Potassium, Blood 4.8 mmol/L (3.5-5.5)
--- NOTE | 2022-03-24 09:12 | NUR ---
pt laying in bed awake a/ox3, pleasant and cooperative with care, follows commands well, lungs are dim t/o, susanne in bases, resp even and unlabored, no cough noted, denies productive cough, currently on r/a, hrr, has pacer, not on tele, no edema noted, ppp+2, cap refill <3sec, vs stable, afebrile, iv is power glide to katherine site is clear and patent, btx4, abd flat soft nontende, voids without diff, skin c/w/d, maew, austin, call light in reach.
--- NOTE | 2022-03-24 18:34 | NUR ---
Pt up ad katelin in room, has been doing his own feeds, no acute changes this shift, no needs at this time, call light in reach.
--- NOTE | 2022-03-24 18:36 | NUR ---
pt slept most of the day, states his chest hurts from coughing, no acute changes this shift, no needs at this time. call light in reach.
--- NOTE | 2022-03-25 04:52 | NUR ---
SHIFT SUMMARY NO ACUTE CHANGES TO REPORT THIS SHIFT, PT HAS RESTED MOST OF THE NIGHT. REQUEST SEVERAL SNACKS THIS SHIFT. VITALS STABLE. IV ANTIBIOTICS INFUSED, PT HAS BEEN INDEPENDENT IN THE ROOM. PLESANT AND COOPERATIVE WITH CARE. PLAN OF CARE REMAINS UNCHANGED. BED IN LOWEST POSITION, CALL LIGHT WITHIN REACH.
--- NOTE | 2022-03-25 08:00 | NUR ---
pt sleeping in bed, wakes easily, a/ox3, pleasant and cooperative with care, follows commands well, states his chest hurts when he moves, lungs are dim t/o, resp even and unlabored on r/a, occ nonproductive cough, hrr, no edema noted, ppp+2, cap refill <3sec, vs stable afebrile, iv site is power glide to katherine, site is clear and patent, btx4, abd flat soft nontender, voids without diff, skin c/w/d, maew, austin, call light in reach.
--- NOTE | 2022-03-25 18:14 | NUR ---
pt had a temp this evening, tylenol given and cool clothes applied, temp came down to 100.9. he reports no discomfort from it, good appetite, no further changes this shift, call light in reach.
--- NOTE | 2022-03-26 06:52 | NUR ---
Rn Summary: Patient is alert and oriented but sleepy. Pt arouses easily. Patient had temp at the beginning of shift, fever broke and pt with lots of diaphoresis. Pt with bed linen change. Urine is dk and concentrated with strong odor. encouraged to increase fluid intake. Patient with good appetite, eating a lot of snacks. Patient has pain rt flank, shoulders are tight. Breath sounds are clear but diminished throughout. Pt is on RA. Powerglide to GRACY, sl positional. Call light in reach. Pt very poliet and cooperative.
--- NOTE | 2022-03-26 08:00 | NUR ---
pt laying in bed awake a/ox3, pleasant and cooperative with care, follows commands well, states the pain is some better, but still painful with movement, lungs have a bit more air movement, but very dim, susanne in bases, on r/a, no cough noted, resp even and unlabored, hrr, pacer noted, no edema noted, ppp+2, cap refill <3sec, vs stable, afebrile, iv site is power glide to katherine site is clear and patent, just a bit positional, btx4, abd flat soft nontender, voids without diff, skin c/w/d, gets clammy at times, maew, up ad katelin in room, call light in reach.
--- NOTE | 2022-03-26 18:49 | NUR ---
no acute changes this shift, pt is sleepy and sleeps most of the day, good appetite. call light in reach.
--- NOTE | 2022-03-27 07:11 | NUR ---
Rn summary: Patient remains pleasant and thankful for cares. Patient with diminished breathsounds left side. Deep breathing encouraged, activity in room encouraged, asked pt to sit up in chair for short intervals during the day. Pt sleeping all night unless awakened for meds. Pt arouses easily. Temp was 102 at beginning of shift, did come down to 99 after tylenol. Continue IV ABX.
[2022-03-27 10:08] LABS: BASOPHILS ABSOLUTE AUTO 0.09 K/mm3 (0.00-0.23); BASOPHILS PERCENT AUTO 1 % (0-2); EOSINOPHILS ABSOLUTE AUTO 0.98 K/mm3 (0.00-0.68); EOSINOPHILS PERCENT AUTO 8 % (0-6); Hematocrit 27.4 % (37.0-53.0); Hemoglobin 9.2 g/dL (13.5-17.5); IMMATURE GRAN ABSOLUTE AUTO 0.13 K/mm3 (0.00-0.10); IMMATURE GRAN PERCENT AUTO 1 % (0-1); LYMPHOCYTES ABSOLUTE AUTO 1.99 K/mm3 (0.84-5.20); LYMPHOCYTES PERCENT AUTO 17 % (21-46); MONOCYTES ABSOLUTE AUTO 1.19 K/mm3 (0.16-1.47); MONOCYTES PERCENT AUTO 10 % (4-13); Mean Corpuscular HGB 29.1 pg (26.0-34.0); Mean Corpuscular HGB Conc 33.6 g/dL (31.5-36.5); Mean Corpuscular Volume 87 fL (80-100); Mean Platelet Volume 8.7 fL (9.1-12.4); NEUTROPHILS ABSOLUTE AUTO 7.57 K/mm3 (1.96-9.15); NEUTROPHILS PERCENT AUTO 63 % (41-73); Platelet Count 328 K/mm3 (150-400); RDW Coefficient Variation 12.8 % (11.7-14.2); Red Blood Cell Count 3.16 M/mm3 (4.30-5.90); White Blood Cell Count 11.95 K/mm3 (4.00-11.30)
[2022-03-27 10:44] LABS: Bun/Creatinine Ratio 27.7 (12.0-20.0); Creatinine, Blood 0.54 mg/dL (0.60-1.20); Potassium, Blood 4.3 mmol/L (3.5-5.5)
--- NOTE | 2022-03-27 18:50 | NUR ---
SHIFT SUMMARY: TMAX 100.9 ORAL TEMP THIS MORNING; DECLINED OFFERED TYLENOL. ON ROOM AIR, BREATHING SHALLOW WITH BARBER OR BEAUTY SHOP MANAGER COUGH. USING URINAL INDEPENDENTLY. GRACY POWERGLIDE WITHOUT BLOOD RETURN. TOLERATING REGULAR DIET. SLEPT MOST OF THE DAY.
--- NOTE | 2022-03-27 20:53 | NUR ---
ORAL TEMP 10.8. ANTIBIOTIC AND TYLENOL PO ADMINISTERED. WILL RECHECK IN A WHILE. ALERT AND ORIENTED. CALL LIGHT IN REACH
--- NOTE | 2022-03-28 04:02 | NUR ---
HOUSEKEEPER/CUSTODIAN/LAUNDRY WORKER SUMMARY TEMP ELEVATED AT HS, RECEIVED TYLENOL AND COLD WET CLOTHS TO BODY. EFFECTIVE, TEMP DROPPED TO 98.7 ORAL. AWAKE AT INTERVALS, REQUESTING FOOD. HAS BEEN RESTING QUIETLY AT THIS TIME. ANTIBIOTICS AND ADDICTION MEDS ADMINISTERED PER JUL. CALL LIGHT IN REACH. WILL CONTINUE TO MONITOR
--- NOTE | 2022-03-28 19:25 | NUR ---
SHIFT SUMMARY: NO ACUTE EVENTS. DENIED PAIN. APPETITE GOOD. POWERGLIDE DRESSING AND CAPS CHANGED. DECLINED OFFERED SHOWER AND LINEN CHANGE. USING URINAL INDEPENDENTLY. AWAITING SWING BED FOR CONTINUED IV ABX.
--- NOTE | 2022-03-28 21:21 | NUR ---
2032 PT LYING IN BED, REPORTS PAIN ALL OVER OF 7/10. GAVE TYLENOL, WILL EVAL FOR EFFECT. PT REQUESTED AND RECIEVED A SNACK. NO OTHER APPARENT SIGNS OF DISTRESS. CALL LIGHT IS IN REACH.
--- NOTE | 2022-03-28 23:54 | NUR ---
PT LYING IN BED, EYES CLOSED, APPEARS TO BE RESTING. WAKES EASILY TO VERBAL STIMULI. DENIES NEED FOR ANYTHING AT THIS TIME. NO APPARENT SIGNS OF DISTRESS. CALL LIGHT IS IN REACH.
--- NOTE | 2022-03-29 06:08 | NUR ---
0200 PT LYING IN BED, EYES CLOSED, APPEARS TO BE RESTING. BREATHING IS EVEN, UNLABORED. NO APPARENT SIGNS OF DISTRESS. CALL LIGHT IS IN REACH.
--- NOTE | 2022-03-29 06:08 | NUR ---
0400 PT LYING IN BED, EYES CLOSED, APPEARS TO BE RESTING. WAKES EASILY TO VERBAL STIMULI. NO APPARENT SIGNS OF DISTRESS. CALL LIGHT IS IN REACH.
--- NOTE | 2022-03-29 06:09 | NUR ---
PT IS AAO X 3, ON RA. REPORTED PAIN ALL OVER, GOT TYLENOL.
--- NOTE | 2022-03-29 06:10 | NUR ---
PT LYING IN BED, EYES CLOSED, APPEARS TO BE RESTING. WAKES EASILY TO VERBAL STIMULI. NO APPARENT SIGNS OF DISTRESS. DENIES NEED FOR ANYTHING AT THIS TIME. CALL LIGHT IS IN REACH. NO OTHER CHANGES THIS SHIFT.
--- NOTE | 2022-03-29 15:59 | NUR ---
PT IS A/OX4. SLOW TO RESPOND AT TIMES. THE PT IS UP IND IN HIS ROOM. PT APPEARS TO BE BREATHING EASILY ON RA THIS TIME.PT REPORTED ONLT MILD CHRONIC PAIN THIS AM CALL LIGHT IN REACH, WILL CONTINUE TO MONITOR AND ASSESS FOR CHANGES
--- NOTE | 2022-03-30 03:49 | NUR ---
Shift Summary Pt AOx4, no C/O pain of nausea. Recieved IV ABX and addiction medications per emar. VSS, pt pleasant and cooperative with care.
--- NOTE | 2022-03-30 17:58 | NUR ---
SHIFT SUMMARY NO ACUTE CHANGES DURING SHIFT. PT ALERT AND ORIENTED, CALLS APPROPRIATELY. PT CONTINUES IV ABX. PT PENDING PLACEMENT AT FACILITY. PT REMAINS ON RA, X 1 ASSIST IN ROOM. WILL CONTINUE TO MONITOR. CALL LIGHT WITHIN REACH.
--- NOTE | 2022-03-31 05:59 | NUR ---
Shift Summary Pt talking in his sleep and sometimes mumbling incoherently when trying to communicate. Recieving IV ABX and PO addiction meds. Independent in room, VSS, pleasant and cooperative with care. No C/O pain or nausea.
--- NOTE | 2022-03-31 16:22 | NUR ---
SHIFT SUMMARY; PATIENT REMAINS IN BED DURING DAY. REFUSES SHOWER AND USES URINAL. DOES NOT WANT TO WALK TO BATHROOM OR SIT IN CHAIR. HE IS NOTED TO YELL OUT AND HAVE CONVERSATIONS IN HIS SLEEP. PATIENT IS NOTED TO HAVE LOW B/P THIS AFTERNOON. HE EATS MOST OF ALL HIS MEALS TODAY. USES CALL LIGHT TO MAKE HIS NEEDS KNOWN. PER DR.JAIN CHINCHILLA WILL NEED TOTAL OF 42 DAYS OF ANTIBIOTICS AND WILL BE HERE FOR A WHILE UNLESS ADAPT CAN BRING HIM TO [facility] FOR ONCE A DAY ANTIBIOTICS. WILL PASS ON TO DAY SHIFT FOR SATURDAY TO CALL ADAPT.
--- NOTE | 2022-03-31 21:53 | NUR ---
AWAKENED IN BED, WAS CALLING OUT. DENIED PAIN AND LOSS OF FEELING. STATED SOME RESTLESSNESS OF LEGS OCCASIONALLY. TOLERATES MEDS WELL. NO NOTED S/S ACUTE DISTRESS. CALL LIGHT IN REACH. AGREED TO DISCUSS SAID RESTLESSNESS OF LEGS WITH AM RN FOR AM MD TO CHECK THEM. WILL CONTINUE TO MONITOR
--- NOTE | 2022-04-01 03:51 | NUR ---
ENRICHMENT SPECIALIST SUMMARY VSS. INTERMITTENT CALLING OUT WHILE APPARENTLY SLEEPING. NO NOTED S/S ACUTE DISTRESS. ANTIBIOTICS AND ANTIADDICTION MEDS ADMINISTERED ORDERED - SEE MAR FOR DETAILS. CURRENTLY RESTING QUIETLY. CALL LIGHT IN REACH. WILL CONTINUE TO MONITOR.
--- NOTE | 2022-04-01 16:27 | NUR ---
SHIFT SUMMARY PT A&OX4. PT APPEARED DROWSY AND WAS DIFFICULT TO UNDERSTAND WHEN FIRST WAKING. PT HAD NO C/O PAIN. TOLERATED MEALS. PT SHOWERED INDPENDENTLY AND REQUESTED ELECTRIC SHAVER AND WAS ABLE TO SHAVE FACE AND HAIR. PT HAD [address]P IN AFTERNOON[address] CÁRDENAS NOTIFIED AND TYLENOL GIVEN PER EMAR. PT'S TEMP WAS 98.7 UPON REASSESSMENT. BED IN LOWEST POSITION AND CALL LIGHT IN REACH.
--- NOTE | 2022-04-02 03:47 | NUR ---
ASSEMBLY LINE LEADER SUMMARY VSS. INTERMITTENT CALLING OUT AND HAND MOVEMENT WHILE SLEEPING. CONTINUES TO REQUEST "CHOCOLATE PUDDING AND AOML CRACKERS". AFEBRILE. RECEIVING ANTIBIOTICS SCHEDULED. LUNG SOUNDS CLEAR TO AUSCULTATION. MORE ACTIVE THIS SHIFT THAN NOTED 24 HR AGO. RESTING QUIETLY AT THIS TIME. CALL LIGHT IN REACH. WILL CONTINUE TO MONITOR
--- NOTE | 2022-04-02 16:03 | NUR ---
SHIFT SUMMARY NO ACUTE CHANGES TODAY. PT A&OX4. NO C/O PAIN. PT APPEARS MORE TIRED THAN YESTERDAY AND SLEPT FOR MOST OF THE DAY. PT DECLINED OFFER TO GET UP IN CHAIR. TALKS IN SLEEP AND OCCASIONALLY YELLS OUT. REMAINED AFEBRILE TODAY. VSS. BED IN LOWEST POSITION AND CALL LIGHT IN REACH.
--- NOTE | 2022-04-03 04:07 | NUR ---
TRAFFIC POLICE OFFICER SUMMARY VSS. REMAINS IN BED WITH FEW ATTEMPTS TO GET OUT. HAS BEEN APPAREANTLY SLEEPING WITH INTERMITTENT CALLING OUT AND FUMBLING WITH HANDS. WHEN AWAKENED AND ASKED IF HE WAS OK, HE VOICED HE WAS FINE. ANTIBIOTICS ADMINISTERED PER JUL. LUNGS CLEAR TO AUSCULTATION. CALL LIGHT IN REACH. WILL CONTINUE TO MONITOR
--- NOTE | 2022-04-03 16:23 | NUR ---
Shift Summary A/Ox3, patient somnolent throughout day. Easily awakens to verbal and tactile stimuli but drifts back to sleep. Does follow instructions when awake. Thought process seems sluggish and patient sometimes have garbled speech. Eating meals appropriately. Offered 1600 buprenorphine, patient declined at this time stating "I'm trying to sleep right now". Up to the bathroom to void. Impulsive. Forgetful. Pleasant.
--- NOTE | 2022-04-04 03:37 | NUR ---
SHIFT SUMMARY PATIENT AXO X 3 AND ONE ASSIST TO BR. USES URINAL AT BEDSIDE. PATIENT ABLE TO ANSWER QUESTIONS APPROPRIATELY AT START OF SHIFT. BECAME MORE SOMNOLENT WITH GARBLED SPEECH AT TIMES. ON ROOM AIR. REPORTED GENERAL PAIN AND LIQUID TYLENOL 650 MG GIVEN PER EMAR. DENIES SOB AND N/V. POWERGLIDE GRACY INTACT. IV ABX GIVEN PER EMAR. VSS/AFEBRILE. COOPERATIVE WITH CARE. CALL LIGHT IN REACH. BED IN LOWEST POSITION. WILL CONTINUE TO MONITOR UNTIL DAY SHIFT NURSE ASSUMES CARE.
--- NOTE | 2022-04-04 18:11 | NUR ---
SHIFT SUMMARY 36-YEAR-OLD CONTINUES IV ABX FOR SEPSIS R/T PHEUMONIA. PTN IS A&O WITH SOME SOMNOLENCE AND GARBLED SPEECH AT TIMES, OTHER TIMES FLUENT SPEECH AND FLUENT CONVERSATION. PTN CONTINENT, USING URINAL. PTN DOES HAVE PACEMAKER. AWAITING SWING BED FOR SHORT STAY AFTER ABX COMPLETE. POWER GLIDE DRESSING CHANGED THIS SHIFT. CONTINUE TO MONITOR.
--- NOTE | 2022-04-05 09:09 | NUR ---
PROCESS CONSULTANT SUMMARY: A&Ox4 THOUGH DROWSY AND OFTEN SLURRS SPEECH BUT WILL ARTICULATE BETTER WHEN ASKED. PLEASANT AND COOPERATIVE WITH CARE. PRN APAP GIVEN FOR LOW-GRADE FEVER LAST NIGHT. NO C/O PAIN OR DISCOMFORT, OTHERWISE. POWERGLIDE ELODIA PATENT AND FLUSHES, BUT DOES NOT RETURN BLOOD. NO ACUTE CONCERNS T/O THE SHIFT. REPORT TO ONCOMING RN.
--- NOTE | 2022-04-05 18:14 | NUR ---
SHIFT SUMMARY PTN REMAINED SEDENTARY AND A LITTLE MORE LETHARGIC THROUGH THIS SHIFT COMPARED TO YESTERDAY. PTN EATING ALL OF MEALS THIS SHIFT. CONTINUE TO MONITOR.
--- NOTE | 2022-04-06 06:08 | NUR ---
SUMMARY: PT SLEPT MAJORITY OF NOCTE BUT AWOKE FOR MEDS AND IS PLEASANTLY COOPERATIVE W/CARE. HE USES URINAL INDEPENDENTLY, REPOSITIONS SELF IN BED AND IS SBA IN ROOM. IV ABX RECIEVED VIA [facility] FOR SUSPECTED ENDOCARDITIS AND MSSA BACTEREMIA. NO ACUTE CHANGES, VSS/AFEBRILE. PLACEMENT PENDING. WCTM AND REPORT TO DAY RN.
--- NOTE | 2022-04-06 15:22 | NUR ---
SHIFT SUMMARY: NO SIGNIFICANT CHANGES THROUGHOUT SHIFT. PATIENT HAS BEEN TAKING NAPS ON/OFF THROUGHOUT THE DAY. WHEN HES ASLEEP HE IS EASILY AROUSEABLE TO TOUCH AND SAYING HIS NAME. HE IS A&OX4. VS ARE WNL AND IS ON RA. PATIENT DENIES ANY PAIN. HE IS TOLERATING PO INTAKE AND IS VOIDING/PASSING GAS. HE IS INDEP. IN THE ROOM. CALLS APPROPRIATELY. PATIENT IS LAYING IN BED WITH CALL LIGHT IN REACH. THE PLAN IS FOR THE PATIENT TO DISCHARGE TO [facility] AND RECIEVE PO ABX. PATIENT IS ALSO REQUESTING BEFORE HE DISCHARGES TO HAVE A LETTER STATING THAT HE WAS IN THE HOSPITAL AND HOW MANY DAYS HE WAS HERE TO GIVE TO COURT SINCE HE MISSED HIS COURT DATE.
--- NOTE | 2022-04-07 05:07 | NUR ---
Patient resting in room, uses urinal for voiding.
[2022-04-07] MEDS ORDERED: DOCU100 PO (12:15)
[2022-04-07] MEDS ORDERED: BUPRENORPHINE HC2 MG SL (12:15)
[2022-04-07] MEDS ORDERED: RIFA300 PO (12:16)
[2022-04-07] MEDS ORDERED: VISBIOME 112.51 EACH PO (12:16)
[2022-04-07] MEDS ORDERED: SULTRIDS PO (12:16)
--- NOTE | 2022-04-07 14:55 | NUR ---
DISCHARGE SUMMARY - PT WAS TO BE DISCHARGED AT 12:30. DR. PURI WITH ORDERS FOR RN TO ASSESS PT'S AMBULATION PRIOR TO DISCHARGE. THROUGH OUT THE AM, PT REFUSED MULTIPLE ATTEMPTS TO ASSIST PT OUT OF BED. AT 11:30, PT STATED HE WANTED TO TAKE A SHOWER. IV REMOVED AT 11:00. AT 12:00, PT STATED THAT HE "GOT DIZZY AND ALMOST FELL THREE TIMES IN THE SHOWER." RN CALLED DR. PURI, WHO HAD ORDERS FOR A STAT PT EVAL. EVAL COMPLETED BY JOHN WHO RECOMMENDED A FOUR WHEEL WALKER UPON DISCHARGE. RN DISCUSSED WITH CARE MANAGEMENT, WHO SECURED A FOUR WHEEL WALKER FOR PT. THE FWW WAS DELIVERED AND PT SIGNED FOR IT. AT 1430, RN COMPLETED DISCHARGE TEACHING WITH PT - INCLUDING APPTS TO KEEP WITH PCP, [facility], AND TO ROUSTABOUT HAND MEDICATIONS AT THE [facility]. BELONGINGS RETURNED TO PT. GREEN SCRIPTS GIVEN TO PT, REGARDING COURT DATE EXCUSE AND BUPINEPHRINE. FAX CONFIRMATION RECEIVED FROM THE [facility] AND PLACED INTO PT'S CHART. PT WHEELED OUT IN WHEELCHAIR PROPELLED BY JUKE BOX SERVICER WITH [facility] TO AWAIT [facility] FOR DISCHARGE TRANSPORTATION. PT REQUESTED TO BE DROPPED OFF AT [facility].
== END 2022-04-07 14:38 | disposition home or self-care (01) | DRG 871 ==
LOC: ER 05:25 → MEDS 11:21 → PCU 11:21 → MEDS 03-14 18:10 → ENPENDDIS 04-07 11:06 → MEDS 04-07 14:38
PROVIDERS: Emergency Medicine; Family Medicine; Family Medicine Adult Medicine; Nurse Practitioner Acute Care; Student in an Organized Health Care Education/Training Program; ADMIT Internal Medicine
PROC: 3E03329 Introduction of Other Anti-infective into Peripheral Vein, Percutaneous Approach (ICD-10-PCS; 2022-03-12)
PROC: B24BZZ4 Ultrasonography of Heart with Aorta, Transesophageal (ICD-10-PCS; principal; 2022-03-15)
DX: A41.01 Sepsis due to Methicillin susceptible Staphylococcus aureus (principal); G92.8 Other toxic encephalopathy; I33.0 Acute and subacute infective endocarditis; J18.9 Pneumonia, unspecified organism; R65.21 Severe sepsis with septic shock; M62.82 Rhabdomyolysis; E87.1 Hypo-osmolality and hyponatremia; I76 Septic arterial embolism; M79.89 Other specified soft tissue disorders; M25.472 Effusion, left ankle; M25.471 Effusion, right ankle; K22.4 Dyskinesia of esophagus; E87.6 Hypokalemia; G89.4 Chronic pain syndrome; F11.10 Opioid abuse, uncomplicated; B19.20 Unspecified viral hepatitis C without hepatic coma; F15.10 Other stimulant abuse, uncomplicated; F17.210 Nicotine dependence, cigarettes, uncomplicated; D69.6 Thrombocytopenia, unspecified; R74.01 Elevation of levels of liver transaminase levels; Z20.822 Contact with and (suspected) exposure to COVID-19; Z95.0 Presence of cardiac pacemaker; Z79.899 Other long term (current) drug therapy; Z79.2 Long term (current) use of antibiotics; Z59.00 Homelessness unspecified
CPT/HCPCS: 0241U; 36415; 51798; 71045; 71260; 80048; 80053; 80074; 80202; 81001; 82550; 82553; 83605; 83690; 83735; 83880; 84145; 84484; 85025; 87040; 87077; 87086; 87147; 87186; 87389; 93005; 93010; 93306; 93312; 93325; 96374; 96375; 97162; 97530; 99285-25; A9270; C1751; J0690; J0696; J1650; J1885; J1940; J2405; J2704; J3370; J7030; J7050; J7120; Q9967